=== PATIENT | female | born 1980 | race Two or more races ===

== ENCOUNTER → 2018-01-22 | Emergency (ER) | payer SELFPAY ==
[~2018-01-22] VITALS: Ht 167.6 cm; Wt 68.0 kg
[2018-01-22 18:38] VITALS: BP_SYST 120; BP_SYST 143; BP_DIAS 80; BP_DIAS 89
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
== END | disposition left against medical advice (07) ==
LOC: EDBD 14:46 → EMR 15:20
DX: F91.9 Conduct disorder, unspecified (principal)
CPT/HCPCS: 99283